=== PATIENT | female | born 1940 | race Caucasian/White ===

== ENCOUNTER 2019-06-04 18:19 | Observation (INO) | payer MEDICARE ==
[2019-06-04] MEDS ORDERED: ASPIRIN 81 MG CHEWABLE TABLET PO ONE (18:26)
--- NOTE | 2019-06-04 18:32 | Emergency Department Record ---
History of Present Illness - General Stated Complaint: CHEST PAIN Time Seen by Provider: 06/04/19 18:25 Source: Patient, Family Mode of Arrival: Ambulatory Limitations: No limitations - History of Present Illness Initial Comments: 79 yo female presents with chest discomfort today. The symptoms first occurred in the morning. She states the discomfort is a heaviness. The sensation comes and goes. She felt a little nauseated this morning. She has has felt tired today as well that is different. The discomfort is center of the chest. It is currently not present. No radiation of the pain when it does occur. No known history of CAD. She is treated for hypercholesterol. Dr Lopez is her PCP. She had a "routine" stress test 2-3 years ago that was normal. No other recent changes in her health. MD Complaint: Chest pain -: Hour(s) Onset: Awoke with symptoms Pain Location: Substernal Pain Radiation: None Severity: Mild Quality: Heaviness Consistency: Intermittent Improves With: Nothing Worsens With: Nothing Anginal Symptoms: Nausea Other Symptoms: Other Treatments Prior to Arrival: Aspirin (Baby aspirin early this morning) - Related Data Home Medications Medication Instructions Recorded Confirmed Last Taken Ferrous Sulfate [Iron] 325 mg PO DAILY 06/04/19 06/04/19 06/04/19 Sertraline HCl [Zoloft] 25 mg PO DAILY 06/04/19 06/04/19 06/04/19 Simvastatin [Zocor] 20 mg PO DAILY 06/04/19 06/04/19 06/04/19 Allergies Allergy/AdvReac Type Severity Reaction Status Date / Time No Known Drug Allergies Allergy Verified 06/04/19 18:31 Review of Systems Constitutional: Denies: Chills, Fever, Malaise, Weakness Eyes: Denies: Eye discharge ENT: Denies: Congestion Respiratory: Denies: Cough, Dyspnea, Hemoptysis, Wheezes Cardiovascular: Reports: Chest pain. Denies: Arrhythmia, Dyspnea on exertion, Edema, Murmurs, Palpitations Endocrine: Reports: Fatigue Gastrointestinal: Denies: Abdominal pain, Diarrhea, Nausea, Vomiting Genitourinary: Denies: Dysuria, Frequency Musculoskeletal: Denies: Arthralgia, Back pain, Joint swelling, Myalgia Skin: Denies: Bruising, Change in color, Rash Neurological: Denies: Headache Psychiatric: Denies: Anxiety Hematological/Lymphatic: Denies: Easy bleeding, Easy bruising Physical Exam - General General Appearance: Alert, Oriented x3, Cooperative, No acute distress Limitations: No limitations - Head Head exam: Atraumatic, Normal inspection - Eye Eye exam: Normal appearance, PERRL. negative: Conjunctival injection, Scleral icterus - ENT ENT exam: Normal exam, Mucous membranes moist Ear exam: Normal external inspection Nasal Exam: Normal inspection Mouth exam: Normal external inspection - Neck Neck exam: Normal inspection - Respiratory Respiratory exam: Normal lung sounds bilaterally. negative: Accessory muscle use, Chest wall tenderness, Decreased breath sounds, Prolonged expiratory, Respiratory distress, Rhonchi, Stridor, Wheezes - Cardiovascular Cardiovascular Exam: Regular rate, Normal rhythm, Normal heart sounds. negative: Diastolic murmur, Systolic murmur Peripheral Pulses: 2+: Radial (R), Radial (L) - GI/Abdominal GI/Abdominal exam: Soft. negative: Tenderness - Rectal Rectal exam: Deferred - exam: Deferred - Extremities Extremities exam: Normal inspection. negative: Calf tenderness, Pedal edema, Tenderness - Back Back exam: Reports: Full ROM. Denies: CVA tenderness (R), CVA tenderness (L) - Neurological Neurological exam: Alert, Oriented X3 - Psychiatric Psychiatric exam: Normal affect, Normal mood - Skin Skin exam: Dry, Intact, Normal color, Warm Course Vital Signs 06/04/19 18:25 Temperature 97.1 F L Pulse Rate [ 73 Pulse Ox Probe] Respiratory 18 Rate Blood Pressure 175/78 [Left Arm] Pulse Ox 97 - Reevaluation(s) Reevaluation #1: 06/04/19 18:33 EKG 18:18 Rate 62 Intervals Normal [place] Normal ST Normal No prior Normal EKG 06/04/19 18:35 CBC is normal 06/04/19 18:52 The labs were reviewed No acute abnormalities. The Troponin is normal 06/04/19 19:09 The CXR was reviewed. Hiatel Hernia noted. 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 Medical Decision Making - Lab Data Result diagrams: 06/04/19 18:30 06/04/19 18:30 Disposition Disposition: Admit Clinical Impression: Chest pain Qualifiers: Chest pain type: unspecified Qualified Code(s): R07.9 - Chest pain, unspecified Disposition: Acute Care Hospital Transfer Decision to Admit: Admit from ER Decision to Admit Date: 06/04/19 Decision to Admit Time: 19:12 Condition: (1) Good Time of Disposition: 19:12 Quality - Quality Measures Quality Measures: N/A - Blood Pressure Screening Does Patient Have Any of the Following: No Blood Pressure Classification: Pre-Hypertensive BP Reading Systolic Measurement: 164 Diastolic Measurement: 81 Screening for High Blood Pressure: < Pre-Hypertensive BP, F/U Documented > [G8950] Pre-Hypertensive Follow-up Interventions: Referral to alternative/primary care provider.
[2019-06-04 18:33] LABS: ABSOLUTE NEUTROPHIL COUNT 6.24; BASO % 0.3 % (0-6); EOS % 0.9 % (0-6); GRAN % 68.5 % (47-80); HEMATOCRIT 40.6 % (35.0-47.0); HEMOGLOBIN 12.7 gm/dl (11.6-16.0); LYMPH % 22.4 % (16-45); MEAN CELL VOLUME 92.3 fl (81-97); MEAN CORPUSCULAR HEMOGLOBIN 28.9 pg (27-33); MEAN CORPUSCULAR HGB CONC 31.3 g/dl (32-36); MEAN PLATELET VOLUME 9.9 fl (7.4-10.4); MONO % 7.9 % (0-9); PLATELET COUNT 277 K/uL (130-400); WHITE BLOOD COUNT W/O DIFF 9.1 K/uL (4.2-12.2)
[2019-06-04 18:43] LABS: BLOOD UREA NITROGEN 17 mg/dL (8-23); CREATININE 0.5 mg/dL (0.5-0.9); EST GLOMERULAR FILTRATION RATE > 60 mL/min
[2019-06-04 18:44] LABS: TOTAL PROTEIN 7.5 g/dL (6.6-8.7)
[2019-06-04 18:46] LABS: GLUCOSE,RANDOM 90 mg/dL (74-109); PARTIAL THROMBOPLASTIN TIME 34.8 SECONDS (24.5-39.1); PROTHROMBIN TIME (PATIENT) 9.9 SECONDS (9.5-12.1)
[2019-06-04 18:48] LABS: ALT/SGPT 17 U/L (<33); AST/SGOT 21 U/L (10.0-35.0)
[2019-06-04 18:49] LABS: ALB/GLOB RATIO 1.3 (1.1-1.8); ALBUMIN 4.3 g/dL (4.0-5.0); ALKALINE PHOSPHATASE 55 U/L (35-104)
[2019-06-04] MEDS ORDERED: ACETAMINOPHEN 325 MG TAB PO PRN (20:12)
[2019-06-04] MEDS ORDERED: NITROGLYCERIN 0.4MG SL TABLET #25 BTL SL PRN (20:12)
[2019-06-04] MEDS ORDERED: SERTRALINE HCL 50 MG TABLET PO SCH (22:00)
[2019-06-04] MEDS ORDERED: SIMVASTATIN 20 MG TABLET PO SCH (22:00)
[2019-06-04] MEDS ORDERED: DIPHENHYDRAMINE HCL 25 MG CAPSULE PO SCH (22:00)
--- NOTE | 2019-06-05 07:20 | RADIOLOGY REPORT ---
EXAM: CHEST, TWO VIEWS HISTORY: CHEST PAIN ACROSS THE UPPER CHEST TODAY. TECHNIQUE: PA and lateral upright views of the chest were obtained. Comparison: None. FINDINGS: The heart is normal in size. A moderate sized hiatal hernia is present. An air fluid level is present within the hiatal hernia. The mediastinum and pulmonary vasculature are normal. The lungs appear mildly hyperinflated. There are no acute infiltrates or effusions. Tiny nodules within the right upper lobe are suggestive of calcified granulomas. The bones appear intact. IMPRESSION: 1. NO ACUTE CHEST PATHOLOGY. 2. MODERATE SIZED HIATAL HERNIA. 3. MILD HYPERINFLATION SUGGESTING COPD. JOB NUMBER: [id number] MTDD
--- NOTE | 2019-06-05 09:32 | History & Physical ---
History of Present Illness - Date of Service Date of Service for History & Physical: 06/05/19 - History of Present Illness Admitting Diagnosis: Chest Pain History of Present Illness: 79 yo female presents to [facility] ER for CP 04/12 that woke her up, resolved on its own and then returned later that day. Pain was across the substernal chest, no radiation, no nausea but reports heart burn with no past heart burn issues. No personal h/o cardiac disease but mother and grandfather both had heart disease. Pt states that she had a stress test 2-3 yrs ago that was normal. 97.1F, HR 73, Bp 175/78, RR 18, 97% RA, pain 0/10 when arrived at ER WBC 9.1, Hgb 40.6, Hct 40.56, Plt 277 Pt 9.9, INR 1.0, aPTT 34.8 Na 139, K 4.01, BUN 17, Cr 0.5, GFR>60, glucose 90, Ca 10.6, LFTs wnl Trop <0.010 EKG NSR 62, no acute process noted CXR no acute cardiopulm process, mod hiatal hernia, mild hyperinflation suggesting COPD Pt given 324mg ASA Admit CP for OBS and cardiology consult 06/05/19 pt resting comfortably in bed, denies CP at this time. Lungs CTA, heart RRR, no murmurs. No BLE edema, moving all extremities with no difficulty. Trop neg x3, NSR tele, VSS. Awaiting cardiology consult. PCP Jessica Travel Screening - Travel/Exposure Within Last 30 Days Have you traveled within the last 30 days?: No - Travel/Exposure Within Last Year Have you traveled outside the [place] in the last year?: No - Additonal Travel Details Have you been exposed to anyone with a communicable illness?: No - Travel Symptoms Symptom Screening: None Review of Systems Constitutional: Denies: Chills, Fever, Malaise, Weakness Eyes: Denies: Eye discharge ENT: Denies: Congestion Respiratory: Denies: Cough, Dyspnea, Hemoptysis, Wheezes Cardiovascular: Reports: Chest pain. Denies: Arrhythmia, Dyspnea on exertion, Edema, Murmurs, Palpitations Endocrine: Reports: Fatigue Gastrointestinal: Denies: Abdominal pain, Diarrhea, Nausea, Vomiting Genitourinary: Denies: Dysuria, Frequency Musculoskeletal: Denies: Arthralgia, Back pain, Joint swelling, Myalgia Skin: Denies: Bruising, Change in color, Rash Neurological: Denies: Headache Psychiatric: Denies: Anxiety Hematological/Lymphatic: Denies: Easy bleeding, Easy bruising Past Medical History - SOCIAL HISTORY Smoking Status: Never smoker Alcohol Use: Occasional Alcohol Use Comment: Daily Drug Use: None - RESPIRATORY Hx Respiratory Disorders: No - CARDIOVASCULAR Hx Cardio Disorders: Yes Comment:: High cholesterol - NEURO Hx Neuro Disorders: No - GI Hx GI Disorders: No - Hx Genitourinary Disorders: No - ENDOCRINE Hx Endocrine Disorders: No - MUSCULOSKELETAL Hx Musculoskeletal Disorders: No - PSYCH Hx Psych Problems: Yes Hx Anxiety: Yes - HEMATOLOGY/ONCOLOGY Hx Hematology/Oncology Disorders: Yes Hx Anemia: Yes Family Medical History Any Significant Family History?: Yes Hx Heart Disease: Grandparents Hx Stroke: Mother H&P Meds/Allergies - Allergies Allergies: Allergies Allergy/AdvReac Type Severity Reaction Status Date / Time No Known Drug Allergies Allergy Verified 06/04/19 18:31 - Home Medications Home Medications Medication Instructions Recorded Confirmed Last Taken Ferrous Sulfate [Iron] 325 mg PO DAILY 06/04/19 06/04/19 06/04/19 Sertraline HCl [Zoloft] 25 mg PO DAILY 06/04/19 06/04/19 06/04/19 Simvastatin [Zocor] 20 mg PO DAILY 06/04/19 06/04/19 06/04/19 - Active Medications Active Medications: Current Medications Acetaminophen (Tylenol 325mg) 650 mg PO Q6H PRN PRN Reason: PAIN - MILD(1-4)/FEVER Aspirin (Ecotrin (Ec)) 325 mg PO DAILY [facility] Diphenhydramine HCl (Benadryl Capsule) 25 mg PO QHS [facility] Last Admin: 06/04/19 21:27 Dose: 25 mg Documented by: Nitroglycerin (Nitrostat 0.4mg) 0.4 mg SL Q5MIN PRN PRN Reason: CHEST PAIN Sertraline HCl (Zoloft) 25 mg PO QHS [facility] Last Admin: 06/04/19 21:28 Dose: 25 mg Documented by: Simvastatin (Zocor) 20 mg PO QHS [facility] Last Admin: 06/04/19 21:27 Dose: 20 mg Documented by: Physical Exam - Vital Signs Vital Signs: Vital Signs - Last 24 Hrs Temp Pulse Pulse Resp BP BP Pulse Ox 06/05/19 08:16 20 06/04/19 21:18 98.2 F 77 75 16 121/64 96 06/04/19 21:00 75 16 06/04/19 19:07 64 20 164/81 99 06/04/19 18:25 97.1 F L 73 18 175/78 97 - General General Appearance: Alert, Oriented x3, Cooperative, No acute distress Limitations: No limitations - Head Head exam: Atraumatic, Normal inspection - Eye Eye exam: Normal appearance, PERRL. negative: Conjunctival injection, Scleral icterus - ENT ENT exam: Normal exam, Mucous membranes moist Ear exam: Normal external inspection Nasal Exam: Normal inspection Mouth exam: Normal external inspection - Neck Neck exam: Normal inspection - Respiratory Respiratory exam: Normal lung sounds bilaterally. negative: Accessory muscle use, Chest wall tenderness, Decreased breath sounds, Prolonged expiratory, Respiratory distress, Rhonchi, Stridor, Wheezes - Cardiovascular Cardiovascular Exam: Regular rate, Normal rhythm, Normal heart sounds. negative: Diastolic murmur, Systolic murmur Peripheral Pulses: 2+: Dorsalis Pedis (R), Dorsalis Pedis (L), 3+: Radial (R), Radial (L) - GI/Abdominal GI/Abdominal exam: Soft. negative: Tenderness - Rectal Rectal exam: Deferred - exam: Deferred - Extremities Extremities exam: Normal inspection. negative: Calf tenderness, Pedal edema, Tenderness - Back Back exam: Reports: Full ROM. Denies: CVA tenderness (R), CVA tenderness (L) - Neurological Neurological exam: Alert, Oriented X3 - Psychiatric Psychiatric exam: Normal affect, Normal mood - Skin Skin exam: Dry, Intact, Normal color, Warm Results - Labs Result Diagrams: 06/04/19 18:30 06/04/19 18:30 Labs Last 24 Hours: Laboratory Results - last 24 hr 06/04/19 06/04/19 06/04/19 18:30 18:30 18:30 WBC 9.1 RBC 4.40 Hgb 12.7 Hct 40.6 MCV 92.3 MCH 28.9 MCHC 31.3 L RDW 16.0 H Plt Count 277 MPV 9.9 Gran % 68.5 Lymphocytes % 22.4 Monocytes % 7.9 Eosinophils % 0.9 Basophils % 0.3 Absolute Neutrophils 6.24 PT 9.9 INR 1.0 APTT 34.8 Sodium 139 Potassium 4.0 Chloride 98 Carbon Dioxide 28.0 Anion Gap 13.0 BUN 17 Creatinine 0.5 Estimated GFR > 60 Random Glucose 90 Calcium 10.6 H Total Bilirubin 0.40 AST 21 ALT 17 Alkaline Phosphatase 55 Troponin T < 0.010 Total Protein 7.5 Albumin 4.3 Globulin 3.2 Albumin/Globulin Ratio 1.3 06/04/19 06/05/19 23:00 07:06 WBC RBC Hgb Hct MCV MCH MCHC RDW Plt Count MPV Gran % Lymphocytes % Monocytes % Eosinophils % Basophils % Absolute Neutrophils PT INR APTT Sodium Potassium Chloride Carbon Dioxide Anion Gap BUN Creatinine Estimated GFR Random Glucose Calcium Total Bilirubin AST ALT Alkaline Phosphatase Troponin T < 0.010 < 0.010 Total Protein Albumin Globulin Albumin/Globulin Ratio - Imaging and Cardiology Chest x-ray Status: Report reviewed VTE H&P Assessment - Risk for VTE Risk for VTE: Yes Risk Level: Moderate Risk Assessment Date: 06/05/19 Risk Assessment Time: 09:33 VTE Orders Placed or Will Be Placed: Yes Plan - Detailed Diagnosis and Plan (1) Chest pain Current Visit: Yes Status: Acute Qualifiers: Chest pain type: unspecified Qualified Code(s): R07.9 - Chest pain, unspecified Base Code: R07.9 - CHEST PAIN, UNSPECIFIED Comment: 06/05/19 -pt denies CP at this time -NSR tele and EKG - neg trop x3, awaiting cardilogy consult (2) DVT prophylaxis Current Visit: Yes Status: Acute Base Code: Z29.9 - ENCOUNTER FOR PROPHYLACTIC MEASURES, UNSPECIFIED Comment: 06/05/19 -lovenox 40mg SQ daily to start 06/06/19 if not d/c'd (3) Full code status Current Visit: Yes Status: Acute Base Code: Z78.9 - OTHER SPECIFIED HEALTH STATUS Comment: 06/05/19 full code
[2019-06-05] MEDS ORDERED: ASPIRIN 325 MG TAB ENTERIC-COATED PO SCH (10:00)
[2019-06-05] MEDS ORDERED: SERTRALINE HCL 50 MG TABLET PO SCH (10:00)
[2019-06-05] MEDS ORDERED: SIMVASTATIN 20 MG TABLET PO SCH (10:00)
--- NOTE | 2019-06-05 12:29 | Discharge Summary ---
Providers Discharge Summary Date: 06/05/19 Date of admission: 06/04/19 19:44 Expected Date of Discharge: 06/05/19 Attending physician: MARGUERITE KING Primary care physician: YVONNE RODRIGUES M.D. 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 negative: Conjunctival injection, Scleral icterus - ENT ENT exam: Normal exam, Mucous membranes moist Ear exam: Normal external inspection Nasal Exam: Normal inspection Mouth exam: Normal external inspection - Neck Neck exam: Normal inspection - Respiratory Respiratory exam: Normal lung sounds bilaterally. negative: Accessory muscle use, Chest wall tenderness, Decreased breath sounds, Prolonged expiratory, Respiratory distress, Rhonchi, Stridor, Wheezes - Cardiovascular Cardiovascular Exam: Regular rate, Normal rhythm, Normal heart sounds. negative: Diastolic murmur, Systolic murmur Peripheral Pulses: 2+: Dorsalis Pedis (R), Dorsalis Pedis (L), 3+: Radial (R), Radial (L) - GI/Abdominal GI/Abdominal exam: Soft. negative: Tenderness - Rectal Rectal exam: Deferred - exam: Deferred - Extremities Extremities exam: Normal inspection. negative: Calf tenderness, Pedal edema, Tenderness - Back Back exam: Reports: Full ROM. Denies: CVA tenderness (R), CVA tenderness (L) - Neurological Neurological exam: Alert, Oriented X3 - Psychiatric Psychiatric exam: Normal affect, Normal mood - Skin Skin exam: Dry, Intact, Normal color, Warm Hospitalization - Hospitalization Admission Diagnosis: Chest Pain - Problem List/Discharge Diagnosis (1) Chest pain Current Visit: Yes Status: Acute Discharge Diagnosis: Chest pain type: unspecified Qualified Code(s): R07.9 - Chest pain, unspecified Base Code: R07.9 - CHEST PAIN, UNSPECIFIED Comment: 06/05/19 -pt denies CP at this time -NSR tele and EKG - neg trop x3, awaiting cardilogy consult Afternoon report -Dr Shay consulted with pt, stress test neg, pt to d/c with PCP outpt f/u (2) DVT prophylaxis Current Visit: Yes Status: Acute Base Code: Z29.9 - ENCOUNTER FOR PROPHYLACTIC MEASURES, UNSPECIFIED Comment: 06/05/19 -lovenox 40mg SQ daily to start 06/06/19 if not d/c'd (3) Full code status Current Visit: Yes Status: Acute Base Code: Z78.9 - OTHER SPECIFIED HEALTH STATUS Comment: 06/05/19 full code - Hospitalization Course Disposition: Home, Self-Care Hospital Course: 79 yo female presents to [facility] ER for CP 04/12 that woke her up, resolved on its own and then returned later that day. Pain was across the substernal chest, no radiation, no nausea but reports heart burn with no past heart burn issues. No personal h/o cardiac disease but mother and grandfather both had heart disease. Pt states that she had a stress test 2-3 yrs ago that was normal. 97.1F, HR 73, Bp 175/78, RR 18, 97% RA, pain 0/10 when arrived at ER WBC 9.1, Hgb 40.6, Hct 40.56, Plt 277 Pt 9.9, INR 1.0, aPTT 34.8 Na 139, K 4.01, BUN 17, Cr 0.5, GFR>60, glucose 90, Ca 10.6, LFTs wnl Trop <0.010 EKG NSR 62, no acute process noted CXR no acute cardiopulm process, mod hiatal hernia, mild hyperinflation suggesting COPD Pt given 324mg ASA Admit CP for OBS and cardiology consult 06/05/19 pt resting comfortably in bed, denies CP at this time. Lungs CTA, heart RRR, no murmurs. No BLE edema, moving all extremities with no difficulty. Trop neg x3, NSR tele, VSS. Awaiting cardiology consult. PCP Jessica Procedures: Imaging and X-Rays 06/04/19 18:26 CHEST 2 VIEWS [RAD] Stat Cardiology Procedures 06/04/19 18:26 Manager System NOW EKG NOW 06/04/19 20:12 Manager System .Continuous 06/05/19 10:26 Stress EKG/STD Treadmill NOW Abnormal Labs: Abnormal Lab Results 06/04/19 06/04/19 Range/Units 18:30 18:30 MCHC 31.3 L (32-36) g/dl RDW 16.0 H (11.5-14.5) % Calcium 10.6 H (8.8-10.2) mg/dL Condition at Discharge: (1) Good Discharge Medications - Discharge Medications Home Medications: Ambulatory Orders Ferrous Sulfate [Iron] 325 mg PO QHS 06/04/19 [Last Taken 06/04/19] Sertraline HCl [Zoloft] 25 mg PO QHS 06/04/19 [Last Taken 06/04/19] Simvastatin [Zocor] 20 mg PO QHS 06/04/19 [Last Taken 06/04/19] Acetaminophen [Tylenol 325Mg] 650 mg PO Q6H PRN tablet 06/05/19 [Last Taken Unknown] Aspirin Enteric-Coated [Ecotrin (EC)] 325 mg PO DAILY tabec 06/05/19 [Last Taken Unknown] Discharge Plan - Discharge Instructions Activity at Discharge: Increase Activity as Tolerated Diet at Discharge: Advance to Usual Diet Quality Measures - Quality Measures Quality Measures: Advance Directives, Documentation of Current Medications in Medical Record, Elder Maltreatment Screen and Follow-Up Plan, Screening for High Blood Pressure and F/U Documented - Current Medications Quality Measure: Measure #130: Documentation of Current Medications Documentation of Current Medications: <Current Medications Documented/Reviewed> [G8427] - Blood Pressure Screening Quality Measure: Screening for High Blood Pressure and Follow-Up Documented Does Patient Have Any of the Following: No Blood Pressure Classification: Pre-Hypertensive BP Reading Systolic Measurement: 121 Diastolic Measurement: 63 Screening for High Blood Pressure: < Pre-Hypertensive BP, F/U Documented > [G8950] Pre-Hypertensive Follow-up Interventions: Referral to alternative/primary care provider. - Advance Directives Quality Measure: Measure #47: Care Plan Advance Directives Established: No Advance Directives Information Provided To Patient: Yes Advance Directives on File: No Living Will: No Power of Longwall Foreman: No Advance Care Planning: <Care Plan/Decision Maker Documented; Discussed & Documented> [2283F] - Elder Abuse Suspicion Index Screening: Elder Abuse Suspicion Index Screening Rely on people for bathing, dressing, shopping, banking, etc: No Prevented from getting food, clothes, medication, etc: No Made to feel shamed or threatened by someone: No Forced to sign papers or use money against will: No Feel afraid, touched in ways not wanted or hurt physically: No Poor eye contact, withdrawn, malnourished, cuts or bruises: No Screening Result: Negative result EASI Reference Information: Jarad GROSS, Rosy C, Myke D, Antonio Felix.Development and validation of a tool to assist physicians identification of elder abuse: The Elder Abuse Suspicion Index (EASI ). Journal of Elder Abuse and Neglect, 2008; 20 (3): 276-300. - Elder Maltreatment Screen Quality Measures: Elder Maltreatment Screen and Follow-Up Plan Elder Maltreatment Screen: <Negative, No Follow-Up Plan Required> [G1876]
[2019-06-06] MEDS ORDERED: ENOXAPARIN 40 MG/0.4 ML SYR SQ SCH (10:00)
--- NOTE | 2019-06-06 16:00 | Medical Records Consult ---
REASON FOR CONSULTATION: Chest pain. HISTORY OF PRESENT ILLNESS: The patient is a delightful 79-year-old female who appears younger than her stated age and presented to the emergency department with complaints of chest pain. The patient described the chest pain as sharp as well as pressure-like symptoms that woke her up from sleep. It was about 8/10 in severity. It had no associated shortness of breath, diaphoresis, or palpitations. She has not had this type of chest pain before. The patient was admitted for further observation, and cardiac markers were checked, which have been within normal limits. Her ECG shows no acute changes. She has not had any arrhythmia either. The patient does not have any history of coronary artery disease. PAST MEDICAL HISTORY: The patient has a history of hyperlipidemia as well as anemia. ALLERGIES: No known drug allergies. HOME MEDICATIONS: 1. Simvastatin 20 mg daily. 2. Zoloft 25 mg daily. 3. Ferrous sulfate 325 mg p.o. daily. SOCIAL HISTORY: The patient is and lives with her . Denies any history of smoking or alcohol use. She is fairly active in her ADLs and has been able to do all her daily chores without any issues. PHYSICAL EXAMINATION: GENERAL: The patient is lying comfortably in bed with her and her son at her bedside. The patient is alert and oriented x3. VITAL SIGNS: Blood pressure 121/64 mmHg, heart rate 77 beats per minute, temperature 98.2 degrees Fahrenheit. HEENT: She is normocephalic and atraumatic. Pupils are equal and reactive to light. Extraocular muscles are intact. NECK: Supple. No thyromegaly. CARDIOVASCULAR: She has normal S1, S2. There is no JVD and no pedal edema. RESPIRATORY: Lungs are clear to auscultation bilaterally. NEUROLOGIC: Nonfocal. DIAGNOSTIC DATA: White count 9.1, hemoglobin 12.7, hematocrit 40.6, platelet count 277. Sodium 139, potassium 4.0, chloride 98, CO2 28, BUN 17, creatinine 0.5, blood glucose 90. Chest x-ray shows no acute changes. Her EKG shows sinus rhythm with no acute changes. ASSESSMENT AND PLAN: Chest pain. The patient's chest pain has resolved and she has not had any more episodes since her admission. The patient's cardiac workup so far has been within normal limits. The chest pain most likely might have been noncardiac and probably either of GI origin or musculoskeletal. However, given her risk factors as well as her age, I would recommend doing ischemic workup in the form of treadmill stress test. If the stress test shows no evidence of ischemia, she may be discharged home. She should be continued on her simvastatin for cardiovascular prophylaxis. Her blood pressure has been adequately controlled. Thank you for involving us in the management of this very pleasant patient. If you have any questions or concerns, please do not hesitate to call me. GIRISH
--- NOTE | 2019-06-06 16:00 | Stress Test Report ---
INDICATION: Chest pain. PROCEDURE: The patient's resting vital signs show a blood pressure of 125/87 mmHg and a heart rate of 88 beats per minute. The patient's resting ECG shows a sinus rhythm at 88 beats per minute with normal QRS axis. The QRS voltage is low in the precordial as well as in the limb leads. The MS interval is 176 ms, QRS duration is 90 ms, QTc interval is 394 ms. The patient was exercised on a motorized treadmill using standard [place] protocol for a total of 3 minutes achieving 4 METs of workload. The patient achieved a maximum heart rate of 141 beats per minute which was 99% of the maximum predicted heart rate for age. The patient's maximum blood pressure was 172/104 mmHg. The patient complained of hip pain during the stress test; however, no chest pain was reported. The patient's ECG does not show any ST- or T-wave changes suggestive of ischemia. No arrhythmia was seen either. IMPRESSION: 1. Normal ECG response to exercise stress while achieving 4 METs of workload. 2. Average exercise capacity for age. MTDD
== END 2019-06-05 13:05 | disposition home or self-care (01) ==
LOC: ER 18:19 → MEDSURG 19:44
PROVIDERS: ADMIT Internal Medicine; ATTEND Internal Medicine
DX: R07.9 Chest pain, unspecified (principal); E78.00 Pure hypercholesterolemia, unspecified; D64.9 Anemia, unspecified; Z29.9 Encounter for prophylactic measures, unspecified
CPT/HCPCS: 71046; 80053; 84484; 85025; 85610; 85730; 93005; 93010; 93017; 99220; 99285